=== PATIENT | male | born 1975 | race African-American/Black ===

== ENCOUNTER 2019-07-30 22:00 | Emergency (ER) | payer OTHER ==
[~2019-07-30] VITALS: Ht 175.3 cm; Wt 77.1 kg
[2019-07-31 00:51] VITALS: BP 142/88
[2019-07-31] MEDS ORDERED: DexAMETHasone SOD PHOS 10MG/1ML VIAL INJ IM ONE (01:00)
[2019-07-31] MEDS ORDERED: cefTRIAXone SOD 1,000 MG VL IM ONE (01:00)
[2019-07-31] MEDS ORDERED: LIDOCAINE 1% HCL (LOCAL ANESTH.) INJ 20ML MDV IJ ONE (01:15)
== END 2019-07-31 01:40 | disposition home or self-care (01) ==
LOC: ER 22:06
DX: J06.9 Acute upper respiratory infection, unspecified (principal)
CPT/HCPCS: 96372; 99283; J0696; J1100; J2001